=== PATIENT | male | born 1995 | race Two or more races ===

== ENCOUNTER 2022-09-08 02:18 | Emergency (ER) | payer SELFPAY ==
[~2022-09-08] VITALS: Ht 180.3 cm; Wt 97.7 kg
[2022-09-08 03:30] LABS: Basophils # (auto) 0.1 10 ^3/uL (0-0.2); Basophils % (auto) 2.2 % (0.0-2.0); Eosinophils # (auto) 0.1 10 ^3/uL (0-0.8); Hematocrit 35.9 % (41.0-53.0); Hemoglobin 11.8 g/dL (13.5-17.5); Lymphocytes # (auto) 0.8 10 ^3/uL (0.4-5.4); Lymphocytes % (auto) 13.1 % (10.0-50.0); Mean Corpuscular Hemoglobin 30.2 pg (28.0-32.0); Mean Corpuscular Volume 91.6 fL (80.0-100.0); Monocytes # (auto) 0.9 10 ^3/uL (0-1.3); Monocytes % (auto) 14.5 % (0.0-12.0); Neutrophils # (auto) 4.3 10 ^3/uL (1.6-8.6); Neutrophils % (auto) 68.2 % (37.0-80.0); Nucleated Red Blood Cells % 0.3 %; Red Blood Cells 3.92 10^6/uL (4.5-5.90); Red Cell Distribution Width 17.3 % (11.8-14.3); White Blood Cell 6.3 10^3/uL (4.4-10.8)
[2022-09-08 03:43] LABS: Albumin 2.8 g/dL (3.4-5.0); BUN/Creatinine Ratio 26.2; Calcium 8.2 mg/dL (8.5-10.1); Potassium 3.6 mmol/L (3.5-5.1)
[2022-09-08 03:46] LABS: Bilirubin, Total 2.1 mg/dL (0.2-1.0)
[2022-09-08] MEDS ORDERED: SODIUM CHLORIDE 0.9% 1,000 ML IV ONE (05:30)
[2022-09-08] MEDS ORDERED: AZITHROMYCIN 250 MG TAB PO ONE (05:30)
[2022-09-08] MEDS ORDERED: DexAMETHasone SOD PHOS 10MG/1ML VIAL INJ IV ONE (05:30)
[2022-09-08] MEDS ORDERED: chlordiazePOXIDE HCL 25 MG CAP PO ONE (05:45)
[2022-09-08 06:45] LABS: Acetaminophen < 2.0 ug/mL (10-30); Salicylate < 1.7 mg/dL (2.8-20.0)
[2022-09-08 07:04] LABS: Urine Bacteria NONE SEEN /hpf (None Seen); Urine Blood 2+ /uL (Negative); Urine Specific Gravity 1.013 (1.001-1.035); Urine WBC 1 /hpf (0 - 3)
[2022-09-08 08:00] VITALS: BP 137/89
== END 2022-09-08 09:20 | disposition left against medical advice (07) ==
LOC: ER 02:18 → EDBD 02:18 → ER 09:20
DX: R56.9 Unspecified convulsions (principal); R55 Syncope and collapse; F10.10 Alcohol abuse, uncomplicated; R50.9 Fever, unspecified; E11.9 Type 2 diabetes mellitus without complications; Z20.822 Contact with and (suspected) exposure to COVID-19; Y90.0 Blood alcohol level of less than 20 mg/100 ml
CPT/HCPCS: 36415; 70450; 71045; 80053; 80320; 80329; 81001; 84484; 85025; 87426; 87804; 93005; 96361; 96374; 99285; J1100; J7030

== ENCOUNTER 2023-11-04 06:18 | Inpatient (IN) | payer MEDICAID, OTHER ==
[~2023-11-04] VITALS: Ht 182.9 cm; Wt 115.1 kg
[2023-11-04 06:53] VITALS: PULSE 120; RESP 16; O2SAT 96
[2023-11-04] MEDS ORDERED: LORazepam 2MG/ML-1ML VIAL IV ONE (07:15)
[2023-11-04] MEDS ORDERED: SODIUM CHLORIDE 0.9% 1,000 ML IV ONE ×2 (07:15)
[2023-11-04 07:36] LABS: Basophils # (auto) 0.1 10 ^3/uL (0-0.2); Basophils % (auto) 1.2 % (0.0-2.0); Eosinophils # (auto) 0.1 10 ^3/uL (0-0.8); Eosinophils % (auto) 2.3 % (0.0-7.0); Hematocrit 42.8 % (41.0-53.0); Hemoglobin 14.3 g/dL (13.5-17.5); Lymphocytes # (auto) 0.7 10 ^3/uL (0.4-5.4); Lymphocytes % (auto) 12.7 % (10.0-50.0); Mean Corpuscular Hemoglobin 32.4 pg (28.0-32.0); Mean Corpuscular Hgb Conc. 33.4 g/dL (32.0-36.0); Mean Corpuscular Volume 97.1 fL (80.0-100.0); Monocytes # (auto) 0.4 10 ^3/uL (0-1.3); Monocytes % (auto) 8.2 % (0.0-12.0); Neutrophils # (auto) 3.9 10 ^3/uL (1.6-8.6); Neutrophils % (auto) 75.6 % (37.0-80.0); Nucleated Red Blood Cells % 0.1 %; Red Blood Cells 4.41 10^6/uL (4.5-5.90); Red Cell Distribution Width 14.2 % (11.8-14.3); White Blood Cell 5.2 10^3/uL (4.4-10.8)
[2023-11-04 07:45] LABS: Alanine Aminotransferase 63 U/L (7-40); Albumin 4.2 g/dL (3.2-4.8); Alkaline Phosphatase 172 U/L (46-116); Anion Gap 9 (5-15); Aspartate Aminotransferase 99 U/L (13-40); Calcium 9.1 mg/dL (8.5-10.1); Carbon Dioxide 23 mmol/L (20-30); Chloride 100 mmol/L (98-107); Glucose 211 mg/dL (74-106); Potassium 3.8 mmol/L (3.5-5.1); Sodium 132 mmol/L (136-145)
[2023-11-04 07:46] LABS: Bilirubin, Total 2.1 mg/dL (0.2-1.0); Total Protein 7.4 g/dL (5.7-8.2)
[2023-11-04 07:47] LABS: BUN/Creatinine Ratio 8.5 (10.0-20.0); Blood Urea Nitrogen < 5 mg/dL (9-23)
[2023-11-04 07:48] VITALS: PULSE 100; RESP 22; O2SAT 99
[2023-11-04 08:54] LABS: COVID19 ANTIGEN SOFIA FIA NEGATIVE (NEGATIVE)
[2023-11-04] MEDS ORDERED: DEXTROSE (50%) 50ML SYRG IV PRN (12:30)
[2023-11-04] MEDS ORDERED: LORazepam 2MG/ML-1ML VIAL IV PRN ×2 (12:30)
[2023-11-04] MEDS ORDERED: MORPHINE SULFATE INJ 2 MG/ml SYRG IV PRN (12:30)
[2023-11-04] MEDS ORDERED: ONDANSETRON HCL 4 MG/2 ML VIAL IV PRN (12:30)
[2023-11-04] MEDS ORDERED: DOCUSATE SOD 100 MG CAP PO PRN (12:30)
[2023-11-04] MEDS: SODIUM CHLORIDE 0.9% 1,000 ML IV SCH ×2 (13:00→20:50)
[2023-11-04] MEDS: chlordiazePOXIDE HCL 25 MG CAP PO SCH ×2 (13:01→20:58)
[2023-11-04 13:39] LABS: Urine Bacteria NONE SEEN /hpf (None Seen); Urine Blood 1+ /uL (Negative); Urine Clarity Clear (Clear); Urine Color Yellow (Yellow); Urine Protein, UAD 3+ (Negative); Urine Specific Gravity 1.012 (1.001-1.035); Urine WBC 1 /hpf (0 - 3)
[2023-11-04 13:45] LABS: Amphetamine Screen, Urine Neg (NEGATIVE); Barbiturate Scree,Urine Neg (NEGATIVE); Benzodiazephine Screen, Urine Neg (NEGATIVE); Cocaine Screen, Urine Neg (NEGATIVE); Opiate Scree,Urine Neg (NEGATIVE)
[2023-11-04 13:46] LABS: Cannabinoid Screen, Urine Neg (NEGATIVE); Phencyclidine Screen, Urine Neg (NEGATIVE)
[2023-11-04 17:00] VITALS: BP 144/97; PULSE 109; RESP 19; TEMP 99; O2SAT 98
[2023-11-04] MEDS: ACCU-CHEK COMFORT CURVE STRIP VI SCH ×2 (17:08→22:04)
[2023-11-04] MEDS: InsuLIN REG 1unit/0.01ml Soln (100units/ml) SC SCH ×2 (17:37→21:57)
[2023-11-04 20:00] VITALS: BP 144/102; PULSE 102; PULSE 108; PULSE 110; RESP 18; TEMP 98.3; O2SAT 97
[2023-11-04] MEDS ORDERED: hydrALAZINE HCL 20 MG/ML VL IV PRN ×2 (20:00→21:45)
[2023-11-04 22:00] VITALS: BP 144/62; PULSE 110; RESP 18; TEMP 98.3; O2SAT 97
[2023-11-05] VITALS (7 sets, daily range): BP systolic 128–147; BP diastolic 85–102; PULSE 71–133; RESP 17–22; TEMP 37.1; O2SAT 97–99
[2023-11-05] MEDS: chlordiazePOXIDE HCL 25 MG CAP PO SCH ×3 (04:11→21:33)
[2023-11-05] MEDS: SODIUM CHLORIDE 0.9% 1,000 ML IV SCH ×3 (05:10→21:50)
[2023-11-05 05:27] LABS: Basophils # (auto) 0.1 10 ^3/uL (0-0.2); Basophils % (auto) 1.9 % (0.0-2.0); Eosinophils # (auto) 0.3 10 ^3/uL (0-0.8); Eosinophils % (auto) 3.9 % (0.0-7.0); Hematocrit 43.7 % (41.0-53.0); Hemoglobin 14.5 g/dL (13.5-17.5); Lymphocytes # (auto) 1.3 10 ^3/uL (0.4-5.4); Lymphocytes % (auto) 17.6 % (10.0-50.0); Mean Corpuscular Hemoglobin 32.2 pg (28.0-32.0); Mean Corpuscular Hgb Conc. 33.2 g/dL (32.0-36.0); Mean Corpuscular Volume 97.1 fL (80.0-100.0); Monocytes # (auto) 0.7 10 ^3/uL (0-1.3); Monocytes % (auto) 8.9 % (0.0-12.0); Neutrophils # (auto) 5.1 10 ^3/uL (1.6-8.6); Neutrophils % (auto) 67.7 % (37.0-80.0); White Blood Cell 7.5 10^3/uL (4.4-10.8)
[2023-11-05 05:50] LABS: Alanine Aminotransferase 59 U/L (7-40); Albumin 4.2 g/dL (3.2-4.8); Alkaline Phosphatase 170 U/L (46-116); Anion Gap 9 (5-15); Aspartate Aminotransferase 87 U/L (13-40); BUN/Creatinine Ratio 12.7 (10.0-20.0); Blood Urea Nitrogen 8 mg/dL (9-23); Carbon Dioxide 22 mmol/L (20-30); Chloride 102 mmol/L (98-107); Glucose 130 mg/dL (74-106); Potassium 3.4 mmol/L (3.5-5.1); Sodium 133 mmol/L (136-145)
[2023-11-05 05:51] LABS: Bilirubin, Total 3.4 mg/dL (0.2-1.0); Total Protein 7.5 g/dL (5.7-8.2)
[2023-11-05] MEDS: ACCU-CHEK COMFORT CURVE STRIP VI SCH ×4 (06:24→21:33)
[2023-11-05] MEDS: InsuLIN REG 1unit/0.01ml Soln (100units/ml) SC SCH ×4 (06:27→21:21)
[2023-11-06 05:00] VITALS: BP 133/84; PULSE 98; RESP 22; TEMP 98.1; O2SAT 99
[2023-11-06] MEDS: InsuLIN REG 1unit/0.01ml Soln (100units/ml) SC SCH (05:52)
[2023-11-06] MEDS: ACCU-CHEK COMFORT CURVE STRIP VI SCH (05:55)
[2023-11-06] MEDS: SODIUM CHLORIDE 0.9% 1,000 ML IV SCH (05:55)
[2023-11-06] MEDS ORDERED: chlordiazePOXIDE HCL 25 MG CAP PO SCH (10:00)
[2023-11-07] MEDS ORDERED: chlordiazePOXIDE HCL 25 MG CAP PO SCH (07:00)
[2023-11-07 09:26] LABS: Hepatitis B Surface Antigen Negative (Negative)
[2023-11-07 09:47] LABS: Hepatitis C Antibody Negative (Negative)
== END 2023-11-06 07:49 | disposition left against medical advice (07) | DRG 53 ==
LOC: EDBD 06:18 → ER 06:18 → TELE 12:24 → TELE-CENTR 13:56
PROVIDERS: ADMIT Nurse Practitioner Family; ATTEND Nurse Practitioner Family
DX: G40.89 Other seizures (principal); G92.9 Unspecified toxic encephalopathy; D69.6 Thrombocytopenia, unspecified; E87.1 Hypo-osmolality and hyponatremia; K74.60 Unspecified cirrhosis of liver; Y90.9 Presence of alcohol in blood, level not specified; F10.139 Alcohol abuse with withdrawal, unspecified; Z53.29 Procedure and treatment not carried out because of patient's decision for other reasons; E11.9 Type 2 diabetes mellitus without complications; R00.0 Tachycardia, unspecified; Z71.41 Alcohol abuse counseling and surveillance of alcoholic; Z20.822 Contact with and (suspected) exposure to COVID-19
CPT/HCPCS: 36415; 70450; 76705; 80053; 80307; 80320; 81001; 82140; 82607; 82962; 83036; 84443; 85025; 86803; 87340; 87426; G0378; J1815